=== PATIENT | male | born 1955 | race Caucasian/White ===

== ENCOUNTER 2016-05-04 13:26 | Emergency (ER) | payer OTHER ==
[2016-05-04 15:35] LABS: HEMOGLOBIN 14.7 gm/dl (14.0-17.5); RED BLOOD COUNT 4.98 M/UL (4.20-5.50); WHITE BLOOD COUNT 5.5 K/UL (4.5-11.0)
[2016-05-04 15:51] LABS: BUN/CREATININE RATIO 12 (0-10)
== END 2016-05-04 16:20 | disposition home or self-care (01) ==
LOC: ER1 13:26
PROVIDERS: Physician Assistant Medical
DX: J20.9 Acute bronchitis, unspecified (principal); I10 Essential (primary) hypertension; Z79.899 Other long term (current) drug therapy
CPT/HCPCS: 36415; 71020; 80053; 85025; 87081; 87880; 99283

== ENCOUNTER → 2020-05-13 | Outpatient (CLI) | payer OTHER ==
[~2020-05-13] MED LIST: ANTIVERT 12.512.5 MG PO; AZITHROMYCIN250 MG PO; COLCHICINE 0.60.6 MG PO; DECADRON6 MG PO; IBUPROFEN800 MG PO; LEVAQUIN750 MG PO; MEDROL4 MG PO; NORCO 5-325 TA1 EACH PO; TORADOL 10 MG T10 MG PO; ZITHROMAX250 MG PO; ZOFRAN ODT 4 MG4 MG PO
== END ==
LOC: KOH-I 11:56
DX: M25.522 Pain in left elbow (principal); M79.89 Other specified soft tissue disorders
CPT/HCPCS: 73080